=== PATIENT | female | born 1950 | race Caucasian/White ===

== ENCOUNTER → 2021-06-17 11:05 | Outpatient (BNVA) | payer MEDICARE, SELFPAY | PROVIDERS: Family Provider Family Medicine; PCP Family Medicine; Visit Provider Family Medicine | DX: J45.20 Mild intermittent asthma, uncomplicated (principal); J32.1 Chronic frontal sinusitis; Z13.1 Encounter for screening for diabetes mellitus; Z13.6 Encounter for screening for cardiovascular disorders; R53.83 Other fatigue; F51.01 Primary insomnia | CPT/HCPCS: 80053; 80061; 84443; 85025 ==

== ENCOUNTER → 2023-08-25 14:02 | Outpatient (BNVA) | payer MEDICARE, SELFPAY | PROVIDERS: Family Provider Family Medicine; PCP Family Medicine; Visit Provider Family Medicine | DX: M17.11 Unilateral primary osteoarthritis, right knee (principal) | CPT/HCPCS: 73562 ==

== ENCOUNTER → 2023-08-31 13:36 | Outpatient (BNVA) | payer MEDICARE, SELFPAY | PROVIDERS: Family Provider Family Medicine; PCP Family Medicine; Referring Provider Family Medicine; Visit Provider Surgery | DX: R13.10 Dysphagia, unspecified (principal); K22.2 Esophageal obstruction | CPT/HCPCS: 99204 ==

== ENCOUNTER 2023-10-05 08:43 | Outpatient (CLI) | payer MEDICARE, SELFPAY ==
--- NOTE | 2023-10-05 09:15 | FL_ITS ---
WS: [id number] Barium swallow and esophagram, 10/05/2023 Clinical Data: R13.10 Comparison: None. Fluoroscopy time: 0min [id number] # of spot films: 22 Findings: The patient swallowed the thick and thin barium, and it flowed through the hypopharynx without hesita tion. No stricture, mass, polyp or erosion was seen. The barium entered the esophagus and there was normal motility throughout. There was a moderate hiata l hernia with gastroesophageal reflux to the thoracic inlet. No erosion, polyp, mass or fistula seen. Impression: Moderate hiatal hernia with gastroesophageal reflux.
== END 2023-10-05 08:44 | disposition home or self-care (01) ==
LOC: RAD 08:45
PROVIDERS: Family Provider Family Medicine; PCP Family Medicine; Visit Provider Surgery
DX: R13.10 Dysphagia, unspecified (principal); K44.9 Diaphragmatic hernia without obstruction or gangrene; K21.9 Gastro-esophageal reflux disease without esophagitis
CPT/HCPCS: 74220

== ENCOUNTER 2023-10-13 08:57 | Day surgery (SDC) | payer MEDICARE, SELFPAY ==
--- NOTE | 2023-10-13 09:37 | W.PM.OPSFHP ---
Same Day Surgery H&P Indication for Procedure/HPI DATE OF PROCEDURE: October 13, 2023 CHIEF COMPLAINT/INDICATIONFOR SURGICAL PROCEDURE: dysphagia PREOP DIAGNOSIS: hiatal hernia PLANNED PROCEDURE: Operation Date: 10/13/23 10:25 [place] Procedures p 02401 egd w balloon dialation R13.10(Not Applicable) - Ramsey Bonilla MD Medications/Allergies* Allergies/Adverse Reactions Allergy/AdvReac Type Severity Reaction Status Date / Time No Known Allergies Allergy Verified 10/03/23 10:17 Pertinent History/Comorbid Conditions* Medical History (Updated 08/31/23 @ 15:42 by Ramsey Bonilla MD) Chronic sinusitis Insomnia, idiopathic Mild intermittent asthma without complication History of breast cancer Surgical History (Updated 09/05/19 @ 15:54 by Tiesha Valentin MD) No pertinent past surgical history Family History (Updated 08/31/23 @ 13:54 by SHAMIKA Muñoz) Colon cancer Mother Colon polyps Son Social History Smoking and tobacco/nicotine status: never used tobacco/nicotine Alcohol intake: never Substance/Drug Use: never Current occupational exposures/hazards: No Current gender identity: Female Pertinent Exam Findings alert, oriented x 3 and clear to auscultation bilaterally Recommendations Surgery/Procedure today Coding Level of Care Code Acute Code for Chg Fwd
--- NOTE | 2023-10-13 09:42 | ANES.PREANE2 ---
Pre-Anesthetic Assessment Height/Weight: Height 1.52 m Preop Diagnosis: hiatal hernia Operation Date: 10/13/23 10:25 Proposed Procedures p 56809 egd w balloon dialation R13.10(Not Applicable) - Ramsey Bonilla MD Familial anesthetic complications: None Was Beta Radha taken within 24 hours: N/A Was Clonidine taken within 24 hours: N/A Last intake: > 8 hrs Social No alcohol and No tobacco Exam alert, oriented x 3, clear to auscultation bilaterally and regular rate & rhythm Airway Mallampati: Class I Dentition: full GI Gastroesophageal Reflux Disease Anesthetic Plan ASA status: 2 Anesthesia: MAC Risk of > 500 ml blood loss (7ml/kg in children): No Medications/Allergies Home Medications Medication Instructions Recorded Confirmed Last Taken Type fluticasone propionate 50 1 spray intranasal DAILY 90 days 06/17/21 10/03/23 10/03/23 Rx mcg/actuation nasal #54.6 mL spray,suspension (Flonase Allergy Relief) loratadine 10 mg tablet 10 mg PO DAILY 90 days #90 tabs 06/17/21 10/03/23 10/03/23 Rx ProAir HFA 90 mcg/actuation 1 puff inhalation QID PRN 08/18/23 10/03/23 10/03/23 Rx aerosol inhaler (albuterol sulfate) shortness of breath or wheezing #8.5 grams zolpidem 10 mg tablet 10 mg PO .at bedtime PRN insomnia 08/18/23 10/03/23 10/03/23 Rx #30 tabs beclomethasone dipropionate 40 1 inh inhalation BID 30 days #10.6 08/19/23 10/03/23 10/03/23 Rx mcg/actuation HFA breath activated grams aerosol (Qvar RediHaler) Allergies Allergy/AdvReac Type Severity Reaction Status Date / Time No Known Allergies Allergy Verified 10/03/23 10:17 [facility] Anesthesia Medical History (Updated 08/31/23 @ 15:42 by Ramsey Bonilla MD) Chronic sinusitis Insomnia, idiopathic Mild intermittent asthma without complication History of breast cancer Surgical History (Updated 08/31/23 @ 13:56 by SHAMIKA Muñoz) No pertinent past surgical history Family History (Updated 08/31/23 @ 13:54 by SHAMIKA Muñoz) Mother Colon cancer Son Colon polyps Social History Smoking and tobacco/nicotine status: never used tobacco/nicotine Alcohol intake: never Substance/Drug Use: never Current occupational exposures/hazards: No Current gender identity: Female Data Anesthesia Cardiac Studies: No Data to Display
[2023-10-13 09:46] VITALS: BP 149/63; PULSE 69; RESP 18; TEMP 36.3; O2SAT 97; BMI 32.0
[2023-10-13] MEDS: sodium chloride 0.9% 1,000 ML 30 ML IV (09:49)
[2023-10-13 10:42] VITALS: BP 107/42; PULSE 81; RESP 18; O2SAT 97
[2023-10-13 10:51] VITALS: BP 96/50; PULSE 80; RESP 18; O2SAT 94
[2023-10-13 11:00] VITALS: BP 123/69; PULSE 72; RESP 18; O2SAT 96
[2023-10-13 11:11] VITALS: BP 125/86; PULSE 73; RESP 18; O2SAT 96
--- NOTE | 2023-10-13 11:20 | ANE.PACU2 ---
Inpatient post-anesthesia follow up: Airway intact: Yes Vital signs: Temperature 97.4 F Pulse Rate 73 Respiratory Rate 18 Blood Pressure 125/86 Pulse Oximetry 96 Oxygen Delivery Me thod Room Air Oxygen Flow Rate Fraction of Inspir ed Oxygen Hydration adequate: Yes Nausea and vomiting: No Pain level: 1 Mental status: Baseline
== END 2023-10-13 11:18 | disposition home or self-care (01) ==
PROVIDERS: PCP Family Medicine; Visit Provider Surgery
DX: R13.10 Dysphagia, unspecified (principal); K44.9 Diaphragmatic hernia without obstruction or gangrene; K21.00 Gastro-esophageal reflux disease with esophagitis, without bleeding; K29.50 Unspecified chronic gastritis without bleeding; K29.80 Duodenitis without bleeding; Z85.3 Personal history of malignant neoplasm of breast
CPT/HCPCS: 43239; 88305; J2704; J7030

== ENCOUNTER → 2024-09-27 10:30 | Outpatient (BNVA) | payer MEDICARE, SELFPAY | PROVIDERS: PCP Family Medicine; Visit Provider Family Medicine | DX: M19.011 Primary osteoarthritis, right shoulder (principal) | CPT/HCPCS: 73030 ==